=== PATIENT | male | born 1995 | race Caucasian/White ===

== ENCOUNTER 2017-08-23 16:45 | Emergency (ER) | payer BC ==
[~2017-08-23] VITALS: Ht 195.6 cm; Wt 95.1 kg
[~2017-08-23 16:45] MED LIST: OXYCODONE H5 MG/5 ML PO
[2017-08-23 17:15] LABS: HEMATOCRIT 46.4 % (38.0-50.0); HEMOGLOBIN 16.3 G/DL (12.5-16.6); MCH 30.2 PG (29.0-34.0); MCHC 35.1 G/DL (30.0-36.0); MCV 85.9 FL (86-99); PLATELET COUNT 244 K/uL (156-360); RBC DIS.WIDTH-SD 37.5 % (39-53)
[2017-08-23 17:24] LABS: CHLORIDE 102 mEq/L (99-109); POTASSIUM 3.8 mEq/L (3.7-5.4); SODIUM 141 mEq/L (136-147)
[2017-08-23 17:26] LABS: GLUCOSE 127 mg/dL (70-99)
[2017-08-23 17:30] LABS: GFR ESTIMATE (CALCULATED) > 59 mL/min/ (58.99-99999)
[2017-08-23 17:31] LABS: UREA NITROGEN (BUN) 14 mg/dL (9-23)
[2017-08-23 17:38] LABS: TROP-I INTERPRETATION NEGATIVE; TROPONIN-I < 0.01 ng/mL (0.0-0.30)
[2017-08-23 20:42] LABS: TROP-I INTERPRETATION NEGATIVE; TROPONIN-I < 0.01 ng/mL (0.0-0.30)
[2017-08-23 22:39] VITALS: BP 124/71
== END 2017-08-23 22:40 | disposition home or self-care (01) ==
LOC: EME 16:45
PROVIDERS: Emergency Medicine
DX: R07.9 Chest pain, unspecified (principal); R20.2 Paresthesia of skin; R06.02 Shortness of breath; R00.0 Tachycardia, unspecified
CPT/HCPCS: 70491; 71046; 71275; 80048; 84484; 85027; 93005; 99281; 99285; J2060; J7030